=== PATIENT | male | born 1960 | race Caucasian/White ===

== ENCOUNTER → 2017-12-12 13:00 | Outpatient (CLI) | payer OTHER, SELFPAY | PROVIDERS: PCP Family Medicine | DX: Z23 Encounter for immunization (principal) | CPT/HCPCS: 90471; 90686 ==

== ENCOUNTER → 2019-01-03 16:35 | Outpatient (CLI) | payer OTHER, SELFPAY | PROVIDERS: PCP Family Medicine | DX: Z23 Encounter for immunization (principal) | CPT/HCPCS: 90471; 90686 ==

== ENCOUNTER → 2020-01-14 11:27 | Outpatient (CLI) | payer OTHER, SELFPAY | PROVIDERS: PCP Family Medicine; Referring Provider Internal Medicine; Visit Provider Internal Medicine | DX: Z23 Encounter for immunization (principal) | CPT/HCPCS: 90471; 90686 ==

== ENCOUNTER → 2020-07-09 15:29 | Outpatient (CLI) | payer OTHER, SELFPAY ==
[2020-07-09] MEDS: COVID-19 VACC, Ad26(JANSSEN)/PF 0.5 ML IM (15:38)
== END ==
PROVIDERS: PCP Family Medicine; Visit Provider Internal Medicine
DX: Z23 Encounter for immunization (principal)
CPT/HCPCS: 0031A; 91303

== ENCOUNTER → 2021-01-21 15:41 | Outpatient (CLI) | payer OTHER, SELFPAY | PROVIDERS: PCP Family Medicine; Referring Provider Internal Medicine; Visit Provider Internal Medicine | DX: Z23 Encounter for immunization (principal) | CPT/HCPCS: 90471; 90686 ==

== ENCOUNTER → 2021-08-02 10:15 | Outpatient (CLI) | payer OTHER, SELFPAY ==
[2021-08-02 11:40] LABS: COVID19 -Nasal RAPID Negative (Negative)
== END ==
PROVIDERS: PCP Family Medicine; Visit Provider Family Medicine Sleep Medicine
DX: Z20.822 Contact with and (suspected) exposure to COVID-19 (principal)
CPT/HCPCS: 87635; C9803

== ENCOUNTER 2021-08-04 12:17 | Day surgery (SDC) | payer OTHER, SELFPAY ==
--- NOTE | 2021-08-04 | PATH_ITS ---
[facility] Accession Number: [id number] No. of containers..02 Tissue . 01 Material submitted: . PART A: colon - TRANSVERSE COLON POLYP PART B: colon - SIGMOID COLON POLYP . 02 Diagnosis: A. Transverse Colon, Polyp, Biopsy: Sessile serrated adenoma. . B. Sigmoid Colon, Polyp, Biopsy: Hyperplastic polyp. [facility] 08/09/2021 1522 Local . 02 Electronically signed: . Merry Lloyd MD, Pathologist NPI- [id number] . 01 Gross description: . Part A: TRANSVERSE COLON POLYP: Received in formalin are 3 fragment(s) of bradley, soft tissue measuring 1.0 x 0.3 x 0.2 cm to 0.3 x 0.1 x 0.1 cm submitted entirely in 1 cassette(s) Part B: SIGMOID COLON POLYP: Received in formalin is 1 fragment(s) of bradley, soft tissue measuring 0.5 x 0.5 x 0.3 cm submitted entirely in 1 cassette(s) /CPE 08/05/2021 0804 Local . 02 Pathologist provided ICD-10: D12.3 . 02 CPT . 383234, [id number] Specimen Comment: A courtesy copy of this report has been sent to [phone] Performed at: 01 [facility] [address], [place], [place] [id number] MD Steve Kelley MD Phone: [phone] Performed at: 02 [facility] [address] [place], [place] [id number] MD Merry Lloyd MD Phone: [phone]
[2021-08-04 13:06] VITALS: BMI 34.4
--- NOTE | 2021-08-04 13:23 | PM.HP.1 ---
History of Present Illness History of Present Illness Date Patient Seen: 08/04/21 Chief complaint: SDC Narrative: Worsening reflux symptoms. History of colon polyps. Patient History Surgical History (Updated 08/01/17 @ 06:00 by Conversion Provider) Status post appendectomy Status post colonoscopy Status post hernia repair Family & Social History Social History: household members spouse Tobacco & Substance use: Smoking Status Never smoker alcohol intake current alcohol intake frequency a few times a month Substance Use Type does not use Meds Home Medications and Allergies Home Medications Medication Instructions Recorded Confirmed Type multivitamin (Multiple Vitamins) 1 tab PO QDAY #0 02/29/16 08/04/21 History telmisartan 40 mg tablet (Micardis) 40 mg PO QDAY #0 02/29/16 08/04/21 History ascorbic acid (vitamin C) 500 mg 500 mg PO DAILY #0 07/20/16 08/04/21 History tablet atorvastatin 40 mg tablet 40 mg PO DAILY 08/04/21 08/04/21 History omeprazole 20 mg capsule,delayed 20 mg PO DAILY 08/04/21 08/04/21 History release trazodone 50 mg tablet 25 mg PO BEDTIME 08/04/21 08/04/21 History Allergies Allergy/AdvReac Type Severity Reaction Status Date / Time No Known Drug Allergies Allergy Verified 08/04/21 12:59 Review of Systems Review of Systems Narrative: Negative Exam Narrative Exam Narrative: Awake alert and oriented x3, pupils equal round reactive to light, oropharynx clear, heart regular rate and rhythm, lungs clear to auscultation bilaterally, abdomen nontender and nondistended, extremities without edema, no gross neurologic deficits noted Assessment & Plan Assessment & Plan narrative: Worsening reflux symptoms, history of colon polyp. For EGD and colonoscopy today Time Spent With Patient Critical Care time: I spent a total of [] minutes of critical care time on this patient's care today; this time is exclusive of procedural time.
[2021-08-04] MEDS: LACTATED RINGERS 1,000 ML 84 ML IV (13:27)
--- NOTE | 2021-08-04 13:40 | PM.OP.EGD ---
Operative Date/Time/Diagnoses Date of procedure: 08/04/21 Procedure & Clinicians Study performed: Diagnostic EGD Indications: Worsening reflux symptoms. Procedure Notes Procedure in detail: Prior to the procedure, history and physical was performed, and patient medications and allergies were reviewed. Preprocedure nursing history and assessment was reviewed. Patient identification and proposed procedure were verified by the physician and nurse in the procedure room. The physical status of the patient was reassessed after the procedure. After informed consent was obtained including risks, benefits, and alternatives, the scope was passed under direct vision. Throughout the procedure, the patient's blood pressure, pulse, and oxygen saturations were monitored continuously. The upper endoscope was introduced through the mouth and advanced to the 2nd portion of the duodenum. Retroflexion was performed in the stomach. The patient tolerated the procedure well. The entire esophagus was normal appearing. Z-line was regular and was located at 44 cm. Normal-appearing stomach. Normal-appearing examined duodenum Complications: none Impression: Normal appearing esophagus and Z-line Normal-appearing stomach Normal appearing duodenum No specimens taken Post-procedure Plan for aftercare: Follow anti-reflux diet and lifestyle modification Colonoscopy today
--- NOTE | 2021-08-04 14:04 | PM.OP.COLON ---
Operative Date/Time/Diagnoses Date of procedure: 08/04/21 Procedure & Clinicians Study performed: Colonoscopy with cold forcep and cold snare polypectomy Indications: Personal history of colon polyps. Colon cancer screening. Last colonoscopy was done in 2015. Procedure Notes Procedure in detail: Prior to the procedure, history and physical was performed, and patient medications and allergies were reviewed. Preprocedure nursing history and assessment was reviewed. Patient identification and proposed procedure were verified by the physician and nurse in the procedure room. The physical status of the patient was reassessed after the procedure. After informed consent was obtained including risks, benefits, and alternatives, the scope was passed under direct vision. Throughout the procedure, the patient's blood pressure, pulse, and oxygen saturations were monitored continuously. The colonoscope was introduced through the anus and advanced to the cecum as identified by the appendiceal orifice and ileocecal valve. The patient tolerated the procedure well. Bowel prep was deemed adequate to detect polyps greater than 5 mm. Perianal and digital rectal examinations were unremarkable. Retroflexion in the rectum revealed grade 2 internal hemorrhoids. Multiple medium-sized diverticula noted in the sigmoid colon. An 8 mm sessile polyp was removed from the transverse colon using a cold snare and was retrieved. A 3 mm sessile polyp was removed from the sigmoid colon a Jumbo forceps and was retrieved Complications: other (EBL minimal. No complications) Impression: Internal hemorrhoids Sigmoid colon diverticulosis 8 mm polyp removed from the transverse colon 3 mm polyp removed from the sigmoid colon Post-procedure Plan for aftercare: Follow-up pathology results Repeat colonoscopy at a date to be determined based on pathology results Resume home medications High fiber diet Patient has a contact number available for emergencies. The signs and symptoms of potential delayed complications were discussed with the patient. Return to normal activities tomorrow. Written discharge instructions were provided to the patient. Discharge home with escort
[2021-08-04 14:07] VITALS: BP 95/51; PULSE 68; RESP 13; TEMP 36.4; O2SAT 92
[2021-08-04 14:13] VITALS: BP 106/64; PULSE 71; RESP 13; O2SAT 93
[2021-08-04 14:18] VITALS: BP 105/61; PULSE 67; RESP 13; O2SAT 93
[2021-08-04 14:26] VITALS: BP 112/58; PULSE 83; RESP 12; TEMP 36.7; O2SAT 98
[2021-08-04 14:53] VITALS: BP 126/81; PULSE 76; RESP 16; TEMP 36.2; O2SAT 98
== END 2021-08-04 15:05 | disposition home or self-care (01) ==
PROVIDERS: PCP Family Medicine; Referring Provider Internal Medicine; Visit Provider Internal Medicine
PROC: 0DJ08ZZ Inspection of Upper Intestinal Tract, Via Natural or Artificial Opening Endoscopic (ICD-10-PCS; CPT 43235; principal; 2021-08-04 13:30)
PROC: 0DJD8ZZ Inspection of Lower Intestinal Tract, Via Natural or Artificial Opening Endoscopic (ICD-10-PCS; CPT 45378; 2021-08-04 13:30)
DX: Z12.11 Encounter for screening for malignant neoplasm of colon (principal); K21.9 Gastro-esophageal reflux disease without esophagitis; Z86.010 Personal history of colon polyps; K57.30 Diverticulosis of large intestine without perforation or abscess without bleeding; K64.8 Other hemorrhoids; D12.3 Benign neoplasm of transverse colon
CPT/HCPCS: 45385; 45380; 43235; J2704; J3010